=== PATIENT | female | born 1960 | race Caucasian/White ===

== ENCOUNTER 2017-12-10 13:47 | Inpatient (IN) | payer SELFPAY ==
[~2017-12-10] VITALS: Ht 165.1 cm; Wt 80.7 kg
[2017-12-10] MEDS ORDERED: SODIUM CHLORIDE 0.9% 1,000 ML IVB ONE (13:59)
[2017-12-10 17:31] LABS: INR 0.96 (0.9-1.15); Partial Thromboplastin Time 22.4 sec (22.64-33.71); Prothrombin Time 10.5 sec (9.37-12.3)
[2017-12-10 17:45] LABS: Alanine Aminotransferase 41 U/L (13-56); Albumin 2.4 g/dL (3.4-5.0); Alkaline Phosphatase 179 U/L (45-117); Anion Gap 20 (5-15); Aspartate Aminotransferase 64 U/L (15-37); BUN/Creatinine Ratio 16.7; Bilirubin, Total 1.4 mg/dL (0.2-1.0); Blood Alcohol < 3.0 mg/dL (0-5); Blood Urea Nitrogen 11 mg/dL (7-18); Calcium 8.4 mg/dL (8.5-10.1); Carbon Dioxide 17 mmol/L (21-32); Chloride 97 mmol/L (98-107); GFR African American 118 mL/min; GFR Non-African American 98 mL/min; Glucose 77 mg/dL (74-106); Lactic Acid w/Reflex 3.7 mmol/L (0.4-2.0); Magnesium 2.5 mg/dL (1.6-2.6); Sodium 134 mmol/L (136-145); Total Protein 7.4 g/dL (6.4-8.2)
[2017-12-10 19:12] LABS: Hematocrit 38.1 % (36.0-46.0); Hemoglobin 13.6 g/dL (12.2-16.2); Mean Corpuscular Hemoglobin 39.1 pg (28.0-32.0); Mean Corpuscular Hgb Conc. 35.8 g/dL (32.0-36.0); Mean Corpuscular Volume 109.4 fL (80.0-100.0); Platelet Count (auto) 211 10^3/uL (140-450); Red Blood Cells 3.48 10^6/uL (4.0-5.20); Red Cell Distribution Width 13.9 % (11.8-14.3); White Blood Cell 10.9 10^3/uL (4.4-10.8)
[2017-12-10 19:20] LABS: Band Neutrophils % (manual) 0; Basophils % (manual) 0 (0.0-2.0); Blast Cells 0; Eosinophils % (manual) 0 (0-7); Metamyelocytes % 0; Myelocytes % 0; Promyelocytes % 0; Reactive Lymphocytes 0
[2017-12-10 19:23] LABS: Lymphocytes % (manual) 20 (10.0-50.0); Monocytes % (manual) 4 (0-12)
[2017-12-10] MEDS ORDERED: SERTRALINE HCL 50 MG TAB PO ONE (22:00)
[2017-12-10] MEDS ORDERED: THIAMINE HCL 100 MG/ML 2ML VIAL IV ONE (22:00)
[2017-12-10] MEDS ORDERED: LORazepam 2MG/ML-1ML VIAL IV PRN (22:00)
[2017-12-10] MEDS ORDERED: MVI in SODIUM CHLORIDE 0.9% 1,010 ML ONE (22:16)
[2017-12-10 23:00] VITALS: BP 118/72
[2017-12-10] MEDS ORDERED: SODIUM CHLORIDE 0.9% 1,000 ML IV SCH (23:00)
[2017-12-11] VITALS: BP 118/72
[2017-12-11 05:41] VITALS: BP 110/76
[2017-12-11 09:00] VITALS: BP 94/67
[2017-12-11] MEDS ORDERED: FOLIC ACID 1 MG TAB PO SCH (10:00)
[2017-12-11] MEDS ORDERED: SERTRALINE HCL 50 MG TAB PO SCH (10:00)
[2017-12-11 10:20] LABS: Eosinophils # (auto) 0 uL; Eosinophils % (auto) 0.2 % (0.0-7.0); Mean Corpuscular Hgb Conc. 34.7 g/dL (32.0-36.0); Monocytes # (auto) 0.4 uL; Neutrophils # (auto) 5.7 uL; Nucleated Red Blood Cells % 0.2 %; Platelet Count (auto) 206 10^3/uL (140-450)
[2017-12-11 10:23] LABS: Basophils # (auto) 0 uL; Basophils % (auto) 0.6 % (0.0-2.0); Hematocrit 35.6 % (36.0-46.0); Hemoglobin 12.3 g/dL (12.2-16.2); Lymphocytes # (auto) 1.7 uL; Lymphocytes % (auto) 21.2 % (10.0-50.0); Mean Corpuscular Volume 112.6 fL (80.0-100.0); Monocytes % (auto) 5.1 % (0.0-12.0); Neutrophils % (auto) 72.9 % (37.0-80.0); Red Blood Cells 3.16 10^6/uL (4.0-5.20); White Blood Cell 7.9 10^3/uL (4.4-10.8)
[2017-12-11 10:42] LABS: BUN/Creatinine Ratio 27.1; Calcium 7.8 mg/dL (8.5-10.1); Potassium 3.3 mmol/L (3.5-5.1); Total Protein 6.2 g/dL (6.4-8.2)
[2017-12-11] MEDS ORDERED: THIAMINE INJ 100 MG, MULTIPLE VITAMIN 10 ML, FOLIC ACID 1 MG, MAGNESIUM SULF SDV 50% 8 ... IV SCH ×5 (12:00)
[2017-12-11] MEDS ORDERED: POTASSIUM CHL 10% (20 MEQ/15ML) 15ml ORAL SOLN PO ONE (12:15)
[2017-12-11 12:55] VITALS: BP 94/67
[2017-12-11 13:15] VITALS: BP 115/73
[2017-12-11 14:45] LABS: Urine Bacteria MANY /hpf (None Seen); Urine Blood Negative /uL (Negative); Urine Mucus MODERATE (None Seen); Urine Specific Gravity 1.025 (1.001-1.035); Urine WBC 106 /hpf (0 - 5)
[2017-12-11 15:10] LABS: Alcohol, Urine < 3.0 mg/dL (0-5); Amphetamine Screen, Urine NEGATIVE (NEGATIVE); Barbiturate Scree,Urine NEGATIVE (NEGATIVE); Benzodiazephine Screen, Urine NEGATIVE (NEGATIVE); Cannabinoid Screen, Urine NEGATIVE (NEGATIVE); Cocaine Screen, Urine NEGATIVE (NEGATIVE); Opiate Scree,Urine NEGATIVE (NEGATIVE); Phencyclidine Screen, Urine NEGATIVE (NEGATIVE)
[2017-12-11 17:33] VITALS: BP 102/61
== END 2017-12-11 19:43 | disposition home or self-care (01) | DRG 70 ==
LOC: ER 13:47 → WEST WING 13:48
PROVIDERS: ADMIT Nurse Practitioner Family; ATTEND Nurse Practitioner Family
DX: G93.41 Metabolic encephalopathy (principal); E43 Unspecified severe protein-calorie malnutrition; E87.1 Hypo-osmolality and hyponatremia; D75.89 Other specified diseases of blood and blood-forming organs; E87.6 Hypokalemia; F10.129 Alcohol abuse with intoxication, unspecified; F32.9 Major depressive disorder, single episode, unspecified; R29.6 Repeated falls; Z68.29 Body mass index [BMI] 29.0-29.9, adult
CPT/HCPCS: 36415; 70450; 71045; 80053; 80307; 80320; 81001; 82962; 83605; 83735; 84484; 85007; 85025; 85027; 85610; 85730; 87040; 87076; 93005; 96360